=== PATIENT | female | born 1980 | race Caucasian/White ===

== ENCOUNTER → 2020-12-20 | Day surgery (SDC) | payer OTHER ==
[~2020-12-20] MED LIST: ATIVAN1 M1 PO; SIMVASTATIN10 MG PO
== END | disposition home or self-care (01) ==
LOC: ADM 12-19 11:00 → CIR.AMB 05:45
PROVIDERS: ATTEND Surgery
DX: N60.81 Other benign mammary dysplasias of right breast (principal); Z20.822 Contact with and (suspected) exposure to COVID-19